=== PATIENT | female | born 1990 | race American Indian/Alaskan Native ===

== ENCOUNTER 2016-04-21 15:30 | Emergency (ER) | payer OTHER ==
[2016-04-21 17:05] VITALS: BP 117/62
--- NOTE | 2016-04-21 19:05 | Emergency Department Report ---
HPI - General Chief Complaint: Upper Respiratory Infection Time Seen by Provider: 04/21/16 18:43 - HPI HPI: 26-year-old -[place] female that is 19 weeks comes in for complaint of cold-like symptoms. Patient reports that she has fluid in her ears productive cough with white mucus running nose sneezing and wheezing. Patient reports that she's been using her inhaler without much relief. Patient currently on albuterol inhaler. ED Past Medical Hx - Past Medical History Hx Diabetes: No Hx Asthma: Yes - Surgical History Additional Surgical History: D&C X 2 - Social History Smoking Status: Never Smoker Substance Use Type: None - Medications Home Medications: Home Medications Medication Instructions Recorded Confirmed Last Taken Type ALBUTEROL Inhaler [ProAir HFA 2 puff IH QID PRN #1 inhalation 01/05/16 Unknown Rx Inhaler] Prednisone [predniSONE 10 mg 10 mg PO .TAPER #1 tab.ds.pk 01/05/16 Unknown Rx (6-Day Pack, 21 Tabs)] Loratadine [Claritin] 10 mg PO DAILY #30 tablet 04/21/16 Unknown Rx ED Review of Systems ROS: Stated complaint: ASTHMA/19WKS Other details as noted in HPI Constitutional: denies: chills, fever ENT: ear pain, congestion, other (sneezing) Respiratory: cough, wheezing Gastrointestinal: denies: abdominal pain, nausea, diarrhea Genitourinary: denies: urgency, dysuria, discharge Musculoskeletal: as per HPI Skin: denies: rash, lesions Neurological: denies: headache, weakness, paresthesias Psychiatric: denies: anxiety, depression Physical Exam - Physical Exam Vital Signs: Vital Signs 04/21/16 17:01 Temperature 97.7 F Pulse Rate 95 H Respiratory 20 Rate Blood Pressure 117/62 O2 Sat by Pulse 98 Oximetry General: GENERAL: Alert and oriented x3, no apparent distress, Normal Gait, atraumatic. HEAD: Head is normocephalic and a-traumatic. EYES: Extra ocular muscles are intact. Pupils are equal, round, and reactive to light and accommodation. EARS: symetrical, atraumatic, non tender, ear canal clear and moderate cerumen, tympanic membrance non inflamed but they are retracted bilateral NOSE: Nose symetrical, Nontender,Nares appeared normal. MOUTH:Mouth is well hydrated and without lesions. Tonsils nonerythematous or swollen, Uvula midline, Tongue not elevated piercing intact. Mucous membranes are moist. Posterior pharynx clear, no exudate or lesions. Patent airways. NECK: Supple. Non edematous, No carotid bruits. No lymphadenopathy or thyromegaly. LUNGS: Symetrical with respiration, No wheezing but rhonchi left lung field. HEART: S1, S2 present, regular rate and rhythm without murmur, no rubs, no gallops. NEUROLOGIC: No focal Deficit, Cranial nerves II through XII are grossly intact. No loss of sensation, No facial droop, PSYCHIATRIC: Mood is congruent with affect, denies suicidal or homicidal ideations. SKIN: Warm and dry, No lesions, No ulceration or induration present ED Course Vital Signs 04/21/16 17:01 Temperature 97.7 F Pulse Rate 95 H Respiratory 20 Rate Blood Pressure 117/62 O2 Sat by Pulse 98 Oximetry - Reevaluation(s) Reevaluation #1: 04/21/16 19:40 Reevaluation the patient lungs are clear now. Patient reports that she feels much better ED Medical Decision Making - Medical Decision Making Patient's been evaluated by this provider in fast track. We'll order a nebulizer treatment for patient. Discussed with patient most likely this is allergy flareup. Discussed with patient and will place her on Claritin 10 mg by mouth daily and she must follow-up with her OB provider within 3-5 days. He verbalized understanding Critical care attestation.: If time is entered above; I have spent that time in minutes in the direct care of this critically ill patient, excluding procedure time. ED Disposition Clinical Impression: Environmental allergies Disposition: DISCHARGED TO HOME OR SELFCARE Is pt being admited?: No Does the pt Need Aspirin: No Condition: Stable Instructions: Allergies (ED) Additional Instructions: Please take the Claritin daily usual albuterol inhaler as needed follow-up with your OB doctor within 3-5 days Prescriptions: Loratadine [Claritin] 10 mg PO DAILY #30 tablet Referrals: provider,your [Other] - 3-5 Days Forms: Work/School Release Form(ED), Accompanied Note
[2016-04-21] MEDS ORDERED: PROVENTIL IH ONE (19:06)
== END 2016-04-21 19:48 | disposition home or self-care (01) ==
LOC: ED 15:30
DX: O26.892 Other specified pregnancy related conditions, second trimester (principal); T78.49XA Other allergy, initial encounter; O99.512 Diseases of the respiratory system complicating pregnancy, second trimester; J45.909 Unspecified asthma, uncomplicated; Z3A.19 19 weeks gestation of pregnancy; X58.XXXA Exposure to other specified factors, initial encounter; Y93.89 Activity, other specified; Y99.8 Other external cause status; Y92.89 Other specified places as the place of occurrence of the external cause

== ENCOUNTER 2017-11-05 01:41 | Emergency (ER) | payer OTHER ==
[2017-11-05 03:16] LABS: Basophils # (Auto) 0.1 K/mm3 (0.0-0.1); Basophils % (Auto) 0.9 % (0.0-1.8); Eosinophils # (Auto) 0.2 K/mm3 (0.0-0.4); Eosinophils % (Auto) 1.8 % (0.0-4.3); Hemoglobin 11.5 gm/dl (10.1-14.3); Lymphocytes # (Auto) 1.6 K/mm3 (1.2-5.4); Lymphocytes % (Auto) 17.2 % (13.4-35.0); Mean Corpuscular HGB Conc 33 % (30-34); Mean Corpuscular Volume 78 fl (79-97); Monocytes # (Auto) 0.6 K/mm3 (0.0-0.8); Monocytes % (Auto) 6.7 % (0.0-7.3); Platelet Count 278 K/mm3 (140-440); Red Blood Count 4.48 M/mm3 (3.65-5.03); Red Cell Distribution Width 16.3 % (13.2-15.2)
[2017-11-05 03:28] LABS: Mean Corpuscular Hemoglobin 26 pg (28-32)
[2017-11-05 03:32] LABS: Alanine Aminotransferase 28 units/L (7-56); Albumin 3.6 g/dL (3.9-5); BUN/Creatinine Ratio 17; Blood Urea Nitrogen 10 mg/dL (7-17); Calcium 9.5 mg/dL (8.4-10.2); Hemolysis Index 18
[2017-11-05 05:10] VITALS: BP 109/48
[2017-11-05 05:21] LABS: Bacteria,Urine 1+ /HPF (Negative); Bilirubin,Urine NEG (Negative); Blood,Urine NEG (Negative); Calcium Oxalate Crystals,Urine 2+; Color,Urine Yellow (Yellow); Mucus,Urine 1+ /HPF; Protein,Urine <15 mg/dL mg/dL (Negative)
== END 2017-11-05 02:45 | disposition left against medical advice (07) ==
LOC: ED 01:41
DX: O26.891 Other specified pregnancy related conditions, first trimester (principal); Z3A.01 Less than 8 weeks gestation of pregnancy; Z53.21 Procedure and treatment not carried out due to patient leaving prior to being seen by health care provider
CPT/HCPCS: 36415; 80053; 81001; 84702; 85025; 93005; 93010